=== PATIENT | male | born 1975 | race Caucasian/White ===

== ENCOUNTER 2024-03-24 04:30 | Emergency (ER) | payer OTHER, BC ==
[2024-03-24 04:37] VITALS: BP 185/111; PULSE 69; RESP 18; TEMP 98.5
== END 2024-03-24 05:06 | disposition home or self-care (01) ==
LOC: EC 04:30
DX: Z53.9 Procedure and treatment not carried out, unspecified reason (principal)

== ENCOUNTER 2024-07-23 05:52 | Emergency (ER) | payer OTHER ==
[2024-07-23 06:03] VITALS: BP 155/96; PULSE 94; RESP 18; TEMP 98.4
== END 2024-07-23 07:00 | disposition home or self-care (01) ==
LOC: EC 05:52
DX: Z02.83 Encounter for blood-alcohol and blood-drug test (principal)
CPT/HCPCS: 99499